=== PATIENT | female | born 1970 | race Caucasian/White ===

== ENCOUNTER → 2021-01-07 | Outpatient (CLI) | payer OTHER ==
[~2021-01-07] MED LIST: ALDACTONE50 MG PO; BIOTIN1 M1 PO; CALCIUM 500 +1 EAC5 PO; FLAGYL500 MG PO; GILDESS FE 1-21 EACH PO; JUNEL1 EAC1 PO; PROMETHAZINE/C118 ML PO; RIZATRIPTAN10 M1 PO; TOPAMAX 25 MG T25 M1 PO; TOPAMAX50 MG PO; UNICOMPLEX M TA1 TA1 PO
== END ==
LOC: RAD 11:45
PROVIDERS: ATTEND Nurse Practitioner
DX: R19.7 Diarrhea, unspecified (principal); R10.9 Unspecified abdominal pain